=== PATIENT | male | born 1960 | race Caucasian/White ===

== ENCOUNTER 2020-10-14 18:38 | Emergency (ER) | payer MEDICARE ==
[2020-10-14 21:13] LABS: HEMOGLOBIN 13.6 gm/dl (14.0-17.5); RED BLOOD COUNT 4.87 M/UL (4.20-5.50); WHITE BLOOD COUNT 8.8 K/UL (4.5-11.0)
[2020-10-14 21:41] LABS: BUN/CREATININE RATIO 13 (0-10)
== END 2020-10-15 00:35 | disposition left against medical advice (07) ==
LOC: ER1 18:38
PROVIDERS: Family Medicine
DX: R53.1 Weakness (principal); E87.6 Hypokalemia; M06.9 Rheumatoid arthritis, unspecified; R00.0 Tachycardia, unspecified; F19.20 Other psychoactive substance dependence, uncomplicated
CPT/HCPCS: 71045; 80053; 81001; 82550; 82553; 83605; 83874; 84439; 84443; 84484; 85025; 85610; 87040; 93005; 99285